=== PATIENT | female | born 1965 | race Caucasian/White ===

== ENCOUNTER 2022-04-22 16:24 | Emergency (ER) | payer BC ==
[~2022-04-22] VITALS: Ht 152.4 cm; Wt 52.3 kg
[2022-04-22 16:33] VITALS: TEMP 98.6
[2022-04-22 17:58] VITALS: BP 122/61; PULSE 73
== END 2022-04-22 18:00 | disposition home or self-care (01) ==
LOC: COL.ER 16:24
DX: S42.202A Unspecified fracture of upper end of left humerus, initial encounter for closed fracture (principal); Z28.310 Unvaccinated for COVID-19; W11.XXXA Fall on and from ladder, initial encounter
CPT/HCPCS: J2270; J2405